=== PATIENT | female | born 1995 | race Caucasian/White ===

== ENCOUNTER → 2019-06-28 | Outpatient (CLI) | payer OTHER, MEDICAID ==
[2019-06-28 12:59] LABS: HEMATOCRIT 38 % (35-52); MEAN CORPUSCULAR HEMOGLOBIN 31 PG (25-34); MEAN CORPUSCULAR HGB CONC 34 G/DL (32-36); MEAN CORPUSCULAR VOLUME 90 FL (80-99); WHITE BLOOD COUNT 7.8 10^3/uL (4.3-11.0)
[2019-06-28 13:00] LABS: BASOPHILS % (AUTO) 0 % (0-10); EOSINOPHILS # (AUTO) 0.1 10^3/uL (0.0-0.3); EOSINOPHILS % (AUTO) 2 % (0-10); LYMPHOCYTES % (AUTO) 25 % (12-44); MEAN PLATELET VOLUME 9.4 FL (7.4-10.4); MONOCYTES # (AUTO) 0.5 X 10^3 (0.0-1.0); MONOCYTES % (AUTO) 7 % (0-12); NEUTROPHILS # (AUTO) 5.2 X 10^3 (1.8-7.8); NEUTROPHILS % (AUTO) 66 % (42-75); PLATELET COUNT 257 10^3/uL (130-400); RED CELL DISTRIBUTION WIDTH 12.3 % (10.0-14.5)
== END ==
LOC: LAB FS 11:53
PROVIDERS: ATTEND Family Medicine
DX: Z34.80 Encounter for supervision of other normal pregnancy, unspecified trimester (principal); Z3A.00 Weeks of gestation of pregnancy not specified
CPT/HCPCS: 36415; 85025; 86703; 86762; 86780; 86850; 86900; 86901; 87077; 87088; 87340

== ENCOUNTER → 2019-08-05 | Outpatient (CLI) | payer OTHER, MEDICAID | LOC: LABNPT 16:11 | PROVIDERS: ATTEND Family Medicine | DX: Z34.90 Encounter for supervision of normal pregnancy, unspecified, unspecified trimester (principal) | CPT/HCPCS: 87491; 87591 ==

== ENCOUNTER 2019-09-22 10:39 | Emergency (ER) | payer OTHER, MEDICAID ==
[~2019-09-22] VITALS: Ht 157 cm; Wt 60.0 kg
--- NOTE | 2019-09-22 10:53 | ED Cough/URI ---
General Stated Complaint: SOB Source: patient History of Present Illness Date Seen by Provider: Sep 22, 2019 Time Seen by Provider: 10:52 Initial Comments 24-year-old female presents with shortness of breath, tachycardia and orthostatic hypotension. Patient reports she has some shortness of breath that started yesterday. Patient presented to her primary care provider. Who sent her to the ER for further evaluation after her being orthostatic and tachycardic. Patient reports that her 3 kids were sick recently with an illness and fever. They have all tested negative for flu. She has recent fever. She denies any fevers at this time. Patient is approximately 20weeks 4 days with last menstrual period on . Patient reports good movement, no vaginal bleeding. Patient states that the shortness of breath sometimes get worse if she lays flat. Patient denies any leg swelling or calf pain Allergies and Home Medications Allergies Coded Allergies: No Known Drug Allergies (Unverified , 09/22/19) Patient Home Medication List Home Medication List Reviewed: Yes Review of Systems Review of Systems Constitutional: see HPI Respiratory: see HPI, short of breath Cardiovascular: see HPI Gastrointestinal: no symptoms reported Genitourinary: no symptoms reported : Yes LMP: May 01, 2019 Musculoskeletal: no symptoms reported Skin: no symptoms reported Psychiatric/Neurological: No Symptoms Reported Past Toztung-Sozzwk-Ppoans Hx Past Med/Social Hx: Reviewed Nursing Past Med/Soc Hx Patient Social History Recent Foreign Travel: Yes Physical Exam Vital Signs - First Documented 09/22/19 11:00 Temp 35.9 Pulse 101 Resp 20 B/P (MAP) 100/66 (77) Pulse Ox 99 O2 Delivery Room Air Capillary Refill : Height: '" Weight: lbs. oz. kg; BMI Method: General Appearance: other (patient's oxygen nation saturation is good however she does look as if she feels short of breath) HEENT: PERRL/EOMI Respiratory: lungs clear, normal breath sounds, no respiratory distress Cardiovascular: no edema, tachycardia Gastrointestinal: non tender, soft, other (gravid appearing) Neurologic/Psychiatric: development mechanic II-XII nml as tested, no motor/sensory deficits, alert, normal mood/affect, oriented x 3 Skin: normal color, warm/dry Lymphatic: no adenopathy Progress/Results/Core Measures Suspected Sepsis SIRS Temperature: Pulse: Respiratory Rate: Laboratory Tests 09/22/19 10:53: White Blood Count 8.4 Blood Pressure / Mean: Laboratory Tests 09/22/19 10:53: Creatinine 0.59L, Platelet Count 234, Total Bilirubin 0.4 Results/Orders Lab Results Laboratory Tests Test 09/22/19 10:53 09/22/19 11:33 Range/Units White Blood Count 8.4 4.3-11.0 10^3/uL Red Blood Count 3.84 L 4.35-5.85 10^6/uL Hemoglobin 12.0 11.5-16.0 G/DL Hematocrit 34 L 35-52 % Mean Corpuscular Volume 89 80-99 FL Mean Corpuscular Hemoglobin 31 25-34 PG Mean Corpuscular Hemoglobin Concent 35 32-36 G/DL Red Cell Distribution Width 13.0 10.0-14.5 % Platelet Count 234 130-400 10^3/uL Mean Platelet Volume 9.6 7.4-10.4 FL Neutrophils (%) (Auto) 76 H 42-75 % Lymphocytes (%) (Auto) 15 12-44 % Monocytes (%) (Auto) 7 0-12 % Eosinophils (%) (Auto) 2 0-10 % Basophils (%) (Auto) 0 0-10 % Neutrophils # (Auto) 6.4 1.8-7.8 X 10^3 Lymphocytes # (Auto) 1.2 1.0-4.0 X 10^3 Monocytes # (Auto) 0.5 0.0-1.0 X 10^3 Eosinophils # (Auto) 0.1 0.0-0.3 10^3/uL Basophils # (Auto) 0.0 0.0-0.1 10^3/uL D-Dimer 0.81 H 0.00-0.49 UG/ML Sodium Level 136 135-145 MMOL/L Potassium Level 3.3 L 3.6-5.0 MMOL/L Chloride Level 102 98-107 MMOL/L Carbon Dioxide Level 17 L 21-32 MMOL/L Anion Gap 17 H 5-14 MMOL/L Blood Urea Nitrogen 8 7-18 MG/DL Creatinine 0.59 L 0.60-1.30 MG/DL Estimat Glomerular Filtration Rate > 60 BUN/Creatinine Ratio 14 Glucose Level 102 70-105 MG/DL Calcium Level 9.3 8.5-10.1 MG/DL Corrected Calcium 9.6 8.5-10.1 MG/DL Total Bilirubin 0.4 0.1-1.0 MG/DL Aspartate Amino Transf (AST/SGOT) 19 5-34 U/L Alanine Aminotransferase (ALT/SGPT) 17 0-55 U/L Alkaline Phosphatase 104 40-136 U/L Troponin I < 0.30 <0.30 NG/ML C-Reactive Protein 2.11 H <0.50 MG/DL Total Protein 7.1 6.4-8.2 GM/DL Albumin 3.6 3.2-4.5 GM/DL Urine Color YELLOW Urine Clarity CLEAR Urine pH 7.5 5-9 Urine Specific [place] 1.015 L 1.016-1.022 Urine Protein NEGATIVE NEGATIVE Urine Glucose (UA) NEGATIVE NEGATIVE Urine Ketones NEGATIVE NEGATIVE Urine Nitrite NEGATIVE NEGATIVE Urine Bilirubin NEGATIVE NEGATIVE Urine Urobilinogen 0.2 < = 1.0 MG/DL Urine Leukocyte Esterase 2+ H NEGATIVE Urine RBC (Auto) NEGATIVE NEGATIVE Urine RBC NONE /HPF Urine WBC 5-10 H /HPF Urine Squamous Epithelial Cells 25-50 H /HPF Urine Crystals NONE /LPF Urine Bacteria FEW H /HPF Urine Casts NONE /LPF Urine Mucus NEGATIVE /LPF Urine Culture Indicated YES Micro Results Microbiology 09/22/19 Influenza Types A,B Antigen (AMINTA) - Final, Complete 09/22/19 Respiratory Syncytial Virus Ag - Final, Complete My Orders Orders - MALIA ADAMS DO Cbc With Automated Diff (09/22/19 10:53) Comprehensive Metabolic Panel (09/22/19 10:53) Fibrin Degradation Products (09/22/19 10:53) Ua Culture If Indicated (09/22/19 10:53) Influenza A And B Antigens (09/22/19 10:53) Rsv Antigen (09/22/19 10:53) Crp Fs (09/22/19 10:53) Chest Pa/Lat (2 View) (09/22/19 10:53) Ekg Tracing (09/22/19 11:23) Troponin I Fs (09/22/19 11:23) Ed Iv/Invasive Line Start (09/22/19 11:34) Ns Iv 500 Ml (Sodium Chloride 0.9%) (09/22/19 11:34) Urine Culture (09/22/19 11:33) Albuterol/Ipra Inhalation Soln (Duoneb I (09/22/19 12:12) Albuterol/Ipra Inhalation Soln (Duoneb I (09/22/19 12:30) Svn Small Volume Nebulizer (09/22/19 12:18) Ed Iv/Invasive Line Start (09/22/19 12:18) Ns Iv 1000 Ml (Sodium Chloride 0.9%) (09/22/19 12:18) Ns Iv 1000 Ml (Sodium Chloride 0.9%) (09/22/19 12:15) Ekg Tracing (09/22/19 13:04) Ct Angio Chest W (09/22/19 13:32) Iohexol Injection (Omnipaque 350 Mg/Ml 1 (09/22/19 14:00) Received Contrast (Hold Metformin- Contr (09/22/19 14:00) Sodium Chloride Flush (Catheter Flush Sy (09/22/19 14:00) Ns (Ivpb) (Sodium Chloride 0.9% Ivpb Bag (09/22/19 14:00) Medications Given in ED Current Medications Medications Dose Ordered Sig/Forest Route Start Time Stop Time Status Last Admin Dose Admin Albuterol/ Ipratropium 3 ml ONCE ONCE INH 09/22/19 12:30 09/22/19 12:31 DC 09/22/19 12:23 3 ML Iohexol 100 ml ONCE ONCE IV 09/22/19 14:00 09/22/19 14:01 DC 09/22/19 14:13 100 ML Sodium Chloride 10 ml NEEDED PRN IV 09/22/19 14:00 09/22/19 16:09 DC 09/22/19 14:14 10 ML Sodium Chloride 100 ml ONCE ONCE IV 09/22/19 14:00 09/22/19 14:01 DC 09/22/19 14:14 100 ML Vital Signs/I&O 09/22/19 09/22/19 09/22/19 11:00 13:52 15:43 Temp 35.9 36.9 Pulse 101 127 128 138 136 Resp 20 20 B/P (MAP) 100/66 (77) 96/57 (70) 105/61 108/68 (81) 98/60 (73) Pulse Ox 99 99 O2 Delivery Room Air Room Air Capillary Refill : Progress Note : Time: 15:26 Progress Note Patient with negative EKG 2 with sinus tachycardia, no orthostatic vital signs, normal oxygen at 100%, negative x-ray, negative CTA. Patient remained tachycardic throughout her stay but otherwise no acute findings. Discussed with Dr. Miller, we both agree the patient is safe for discharge home with further outpatient evaluation with possible outpatient echo. Patient's 3 kids all with a viral illness and suspect that this is the underlying cause of patient's tachycardia. Patient is stable and will be discharged home. She should follow-up with Dr. Miller in a couple days. Diagnostic Imaging Comments NAME: CAMI NICHOLSON [facility] REC#: [id number] PT STATUS: REG ER : 1995 PHYSICIAN: MALIA ADAMS DO ADMIT DATE: 09/22/19/ER FS Draft Date of Exam:09/22/19 CHEST PA/LAT (2 VIEW) PATIENT HISTORY: Shortness of breath. TECHNIQUE: Two views of the chest. COMPARISON: None. FINDINGS: The lung volumes are normal. No focal consolidation is seen. No large pleural effusion or pneumothorax is seen. The cardiomediastinal silhouette is normal in size and contour. No acute osseous abnormality is seen. IMPRESSION: No acute pulmonary abnormality seen. NAME: CAMI NICHOLSON [facility] REC#: [id number] PT STATUS: REG ER : 1995 PHYSICIAN: MALIA ADAMS DO ADMIT DATE: 09/22/19/ER FS Draft Date of Exam:09/22/19 CT ANGIO CHEST W PROCEDURE: CT angiography of the chest with contrast. TECHNIQUE: Multiple contiguous axial images were obtained through the chest after uneventful bolus administration of intravenous contrast. 3D reconstructed CTA MIP acquisitions were also performed. Auto Exposure Controls were utilized during the CT exam to meet ALARA standards for radiation dose reduction. INDICATION: Intermittent shortness of breath for the last 3 days. Patient also has elevated D-dimer. Patient is 20 weeks . No prior studies are available for comparison. Evaluation of the pulmonary arterial system is without thrombus or embolism. No definite filling defects are seen within central, lobar or segmental branches. The thoracic aorta is normal caliber. No dissection is seen. No pericardial or pleural fluid is identified. No pulmonary infiltrates, nodules or masses are seen. The upper abdomen is unremarkable. IMPRESSION: Unremarkable CT angiogram of the chest. There is no evidence of pulmonary embolism or thoracic aortic dissection. Departure Impression Primary Impression: Viral syndrome Additional Impressions: Tachycardia, unspecified 20 weeks gestation of Disposition: 01 HOME, SELF-CARE Condition: Stable Departure-Patient Inst. Referrals: SANJAY MILLER MD (PCP/Family) Primary Care Physician Patient Instructions: How to Adapt to Physical Changes During , Tachycardia (DC), Viral Upper Respiratory Infection, Adult (DC) Add. Discharge Instructions: Follow-up with Dr. Miller by phone in 3-4 days for continuation of care, recheck in today symptoms Please use self quarantined for 14 days due to recurrent rotavirus recommendations Return to the ER as needed Emergency department focuses on treating and ruling out life-threatening diseases. Whenever possible, a diagnosis is given. However, most patients are given an impression based on their history, physical exam, and workup during your brief time in the ER. Information about probable diagnosis and other educational material has been provided. Please take the time to read and understand this information. It is very important that you follow up with a physician as discussed during the visit today. Failure to adhere to your follow-up instructions may lead to severe disability, injury, or so please make sure to keep your appointments or obtain one as requested. Please keep in mind the emergency department is not designed to your primary care or "family doctor" and nonurgent issues are best evaluated by an outpatient physician MALIA ADAMS DO Sep 22, 2019 10:53
[2019-09-22 11:22] LABS: MEAN CORPUSCULAR HEMOGLOBIN 31 PG (25-34); WHITE BLOOD COUNT 8.4 10^3/uL (4.3-11.0)
--- NOTE | 2019-09-22 11:22 | Diagnostic Imaging Report ---
PATIENT HISTORY: Shortness of breath. TECHNIQUE: Two views of the chest. COMPARISON: None. FINDINGS: The lung volumes are normal. No focal consolidation is seen. No large pleural effusion or pneumothorax is seen. The cardiomediastinal silhouette is normal in size and contour. No acute osseous abnormality is seen. IMPRESSION: No acute pulmonary abnormality seen. Dictated by: Dictated on workstation # [id number]
[2019-09-22 11:23] LABS: BASOPHILS % (AUTO) 0 % (0-10); EOSINOPHILS # (AUTO) 0.1 10^3/uL (0.0-0.3); EOSINOPHILS % (AUTO) 2 % (0-10); HEMATOCRIT 34 % (35-52); LYMPHOCYTES # (AUTO) 1.2 X 10^3 (1.0-4.0); LYMPHOCYTES % (AUTO) 15 % (12-44); MEAN CORPUSCULAR HGB CONC 35 G/DL (32-36); MEAN CORPUSCULAR VOLUME 89 FL (80-99); MEAN PLATELET VOLUME 9.6 FL (7.4-10.4); MONOCYTES # (AUTO) 0.5 X 10^3 (0.0-1.0); MONOCYTES % (AUTO) 7 % (0-12); NEUTROPHILS # (AUTO) 6.4 X 10^3 (1.8-7.8); NEUTROPHILS % (AUTO) 76 % (42-75); PLATELET COUNT 234 10^3/uL (130-400)
[2019-09-22] MEDS ORDERED: NS IV 500 ML 500 ML IV ONE (11:34)
[2019-09-22 11:43] LABS: ALKALINE PHOSPHATASE 104 U/L (40-136); BILIRUBIN,TOTAL 0.4 MG/DL (0.1-1.0); BUN/CREATININE RATIO 14; CALCIUM 9.3 MG/DL (8.5-10.1); CARBON DIOXIDE 17 MMOL/L (21-32); CHLORIDE 102 MMOL/L (98-107); CREATININE SERUM 0.59 MG/DL (0.60-1.30); GFR ESTIMATED > 60; GLUCOSE 102 MG/DL (70-105); POTASSIUM 3.3 MMOL/L (3.6-5.0); SODIUM 136 MMOL/L (135-145)
[2019-09-22 11:44] LABS: ALANINE AMINOTRANSFERASE 17 U/L (0-55); ALBUMIN 3.6 GM/DL (3.2-4.5); TOTAL PROTEIN 7.1 GM/DL (6.4-8.2)
[2019-09-22 11:50] LABS: CLARITY,URINE CLEAR; COLOR,URINE YELLOW
[2019-09-22 11:51] LABS: BACTERIA,URINE FEW /HPF; BILIRUBIN,URINE NEGATIVE (NEGATIVE); GLUCOSE, URINE (UA) NEGATIVE (NEGATIVE); KETONES,URINE NEGATIVE (NEGATIVE); LEUKOCYTE ESTERASE ,URINE 2+ (NEGATIVE); NITRITE,URINE NEGATIVE (NEGATIVE); PH,URINE 7.5 (5-9); PROTEIN,URINE NEGATIVE (NEGATIVE); SQUAMOUS EPITHELIAL CELL,UR 25-50 /HPF
[2019-09-22] MEDS ORDERED: RT-ALBUTEROL/IPRATROPIUM 3 ML (DUONEB) VIAL ONE (12:12)
[2019-09-22] MEDS ORDERED: NS IV 1000 ML 1,000 ML ONE (12:15)
[2019-09-22] MEDS ORDERED: NS IV 1000 ML 1,000 ML IV SCH (12:18)
[2019-09-22] MEDS ORDERED: RT-ALBUTEROL/IPRATROPIUM 3 ML (DUONEB) VIAL INH ONE (12:30)
--- OUTSIDE RECORDS SUMMARY | 2019-09-22 12:40 | XMS REPORT | Continuity of Care Document ---
Author Organization Unknown Address Unknown Phone Unavailable Allergies There is no data. Medications There is no data. Problems Date Dx Coded Attending Type Code Diagnosis Diagnosed By 07/02/2019 SANJAY MILLER MD Ot Z34.80 ENCOUNTER FOR SUPRVSN OF NORMAL PREGNANC 07/02/2019 SANJAY MILLER MD Ot Z3A.00 WEEKS OF GESTATION OF NOT SPEC 07/02/2019 SANJAY MILLER MD Ot Z34.80 ENCOUNTER FOR SUPRVSN OF NORMAL PREGNANC 07/02/2019 SANJAY MILLER MD Ot Z3A.00 WEEKS OF GESTATION OF NOT SPEC 07/04/2019 SANJAY MILLER MD Ot Z34.80 ENCOUNTER FOR SUPRVSN OF NORMAL PREGNANC 07/04/2019 SANJAY MILLER MD Ot Z3A.00 WEEKS OF GESTATION OF NOT SPEC 07/13/2019 SANJAY MILLER MD Ot Z34.80 ENCOUNTER FOR SUPRVSN OF NORMAL PREGNANC 07/13/2019 SANJAY MILLER MD Ot Z3A.00 WEEKS OF GESTATION OF NOT SPEC 08/07/2019 SANJAY MILLER MD Ot Z34.90 ENCNTR FOR SUPRVSN OF NORMAL , 08/10/2019 SANJAY MILLER MD Ot Z34.90 ENCNTR FOR SUPRVSN OF NORMAL , 08/23/2019 SANJAY MILLER MD Ot Z34.90 ENCNTR FOR SUPRVSN OF NORMAL , 08/27/2019 SANJAY MILLER MD Ot Z34.90 ENCNTR FOR SUPRVSN OF NORMAL , Procedures There is no data. Results Test Result Range ELIZ ANALYZER - 11/26/18 10:20 ELIZ SCREEN, IFA NEGATIVE NEGATIVE HCG, QUANTITATIVE - 04/21/19 13:15 HCG, TOTAL, QN <2 mIU/mL NRG CULTURE, URINE - 06/24/19 10:07 CULTURE, URINE, ROUTINE NRG CULTURE, THROAT - 06/24/19 10:07 CULTURE, THROAT SEE NOTE NRG Complete blood count (CBC) with automate d white blood cell (WBC) differential - 06/28/19 12:17 Blood leukocytes automated count (number/volume) 7.8 10*3/uL 4.3-11.0 Blood erythrocytes automated count (number/volume) 4.25 10*6/uL 4.35-5.85 Venous blood hemoglobin measurement (mass/volume) 13.0 g/dL 11.5-16.0 Blood hematocrit (volume fraction) 38 % 35-52 Automated erythrocyte mean corpuscular volume 90 [ foz_us] 80-99 Automated erythrocyte mean corpuscular h emoglobin (mass per erythrocyte) 31 pg 25-34 Automated erythrocyte mean corpuscular h emoglobin concentration measurement (mass/volume) 34 g/dL 32-36 Automated erythrocyte distribution width ratio 12. 3 % 10.0- 14.5 Automated blood platelet count (count/volume) 257 10*3/uL 130-400 Automated blood platelet mean volume measurement 9.4 [foz_us] 7.4-10.4 Automated blood neutrophils/100 leukocytes 66 % 42-75 Automated blood lymphocytes/100 leukocytes 25 % 12-44 Blood monocytes/100 leukocytes 7 % 0-12 Automated blood eosinophils/100 leukocytes 2 % 0-10 Automated blood basophils/100 leukocytes 0 % 0-10 Blood neutrophils automated count (number/volume) 5.2 10*3 1.8-7.8 Blood lymphocytes automated count (number/volume) 2.0 10*3 1.0-4.0 Blood monocytes automated count (number/volume) 0. 5 10*3 0.0-1.0 Automated eosinophil count 0.1 10*3/uL 0 .0-0.3 Automated blood basophil count (count/volume) 0.0 10*3/uL 0.0-0.1 ABO+Rh group - 06/28/19 12:17 ABO+Rh group BP NRG Blood group antibody screen - 06/28/19 1 2:17 Blood group antibody screen NEGATIVE NR G Human immunodeficiency virus (HIV) type 1 and 2 antibody detection - 06/28/19 12:17 Serum HIV 1+2 antibody detection by immunoblot Non-Reactive Non-Reactive Body fluid hepatitis B virus surface ant igen detection - 06/28/19 12:17 Confirmatory quantitative serum or plasm a hepatitis B virus surface antigen measurement Non-Reactive Non-Reactive RUBELLA ANTIBODY IGG - 06/28/19 12:17 Interpretation of serum rubella virus IgG antibody jyoti t Positive Negative RUBELLA IGG AB 1.83 % 0.00-0.89 Serum reagin antibody assay (units/volum e) by RPR - 06/28/19 12:17 Serum reagin antibody assay (units/volume) by RPR Non-Reactive Non-Reactive Bacterial urine culture - 06/28/19 12:17 Bacterial urine culture [id number] NRG COLONY COUNT <10,000 NRG FTX;REPORTABLE NO SUSCEPTIBILITY PERFORMED NRG Chlamydia trachomatis DNA detection by p robe and signal amplification method - 08/05/19 16:16 Chlamydia trachomatis DNA detection by p robe and target amplification method Not Detected Not Detected Neisseria gonorrhoeae DNA detection by p robe and signal amplification method - 08/05/19 16:16 Gonorrhea amp DNA-urine Not Detected No t Detected Encounters ACCT No. Visit Date/Time Discharge Status Pt. Type Provider Facility Loc./Unit Complaint [id number] 06/28/2019 11:20:00 06/28/2019 23:59: 59 CLS Outpatient [facility] [id number] 06/24/2019 10:00:00 Document Registration [id number] 04/21/2019 13:20:00 Document Registration [id number] 11/26/2018 09:45:00 Document Registration [id number] 06/08/2019 13:40:00 06/08/2019 23:59:5 9 CLS Outpatient SANJAY MILLER [facility] [id number] 08/05/2019 16:11:00 020 23:59:59 CLS Outpatient SANJAY MILLER MD [facility] LABNPT [id number] 06/28/2019 11:53:00 019 23:59:59 CLS Outpatient SANJAY MILLER MD [facility] LAB FS HIV CBC BLOOD TYPE/RH A NTIBODY SCRN SYPHILIS HEPB+
[2019-09-22 13:52] VITALS: BP_SYST 108; BP_SYST 96; BP_SYST 98; BP_DIAS 57; BP_DIAS 60; BP_DIAS 68
[2019-09-22] MEDS ORDERED: CATHETER FLUSH 10 ML SYR IV PRN (14:00)
[2019-09-22] MEDS ORDERED: IOHEXOL 350 MG/ML 100 ML (OMNIPAQUE 350) VIAL IV ONE (14:00)
[2019-09-22] MEDS ORDERED: HOLD METFORMIN - RECEIVED CONTRAST 20 ML VIAL IV SCH (14:00)
[2019-09-22] MEDS ORDERED: NS 100 ML (IVPB) BAG IV ONE (14:00)
--- NOTE | 2019-09-22 14:29 | Diagnostic Imaging Report ---
PROCEDURE: CT angiography of the chest with contrast. TECHNIQUE: Multiple contiguous axial images were obtained through the chest after uneventful bolus administration of intravenous contrast. 3D reconstructed CTA MIP acquisitions were also performed. Auto Exposure Controls were utilized during the CT exam to meet ALARA standards for radiation dose reduction. INDICATION: Intermittent shortness of breath for the last 3 days. Patient also has elevated D-dimer. Patient is 20 weeks . No prior studies are available for comparison. Evaluation of the pulmonary arterial system is without thrombus or embolism. No definite filling defects are seen within central, lobar or segmental branches. The thoracic aorta is normal caliber. No dissection is seen. No pericardial or pleural fluid is identified. No pulmonary infiltrates, nodules or masses are seen. The upper abdomen is unremarkable. IMPRESSION: Unremarkable CT angiogram of the chest. There is no evidence of pulmonary embolism or thoracic aortic dissection. Dictated by: Dictated on workstation # [id number]
[2019-09-22 15:43] VITALS: BP 105/61
== END 2019-09-22 15:36 | disposition home or self-care (01) ==
LOC: EDUNIT# 10:39 → ER FS 10:44
DX: O98.512 Other viral diseases complicating pregnancy, second trimester (principal); B34.9 Viral infection, unspecified; O26.892 Other specified pregnancy related conditions, second trimester; R00.0 Tachycardia, unspecified; Z3A.20 20 weeks gestation of pregnancy
CPT/HCPCS: 36415; 71046; 71275; 80053; 81000; 84484; 85025; 85379; 86141; 87088; 87420; 87804; 93005

== ENCOUNTER → 2019-09-24 | Outpatient (CLI) | payer OTHER, MEDICAID ==
--- NOTE | 2019-09-24 13:31 | Diagnostic Imaging Report ---
EXAMINATION: CHEST (PA AND LATERAL) CLINICAL INDICATION: 24-year-old female, shortness of breath. COMPARISON: September 22, 2019. FINDINGS: Heart size and mediastinal contours are unremarkable. There is no identified pneumothorax. There is no pleural effusion. There is no identified focal airspace consolidation. IMPRESSION: No identified acute cardiopulmonary abnormality. Dictated by: Dictated on workstation # [id number]
== END ==
LOC: RAD FS 13:01
PROVIDERS: ATTEND Family Medicine
DX: R06.02 Shortness of breath (principal)
CPT/HCPCS: 71046

== ENCOUNTER → 2019-09-24 | Outpatient (CLI) | payer OTHER, MEDICAID ==
[2019-09-24 13:34] LABS: HEMATOCRIT 34 % (35-52); HEMOGLOBIN 11.5 G/DL (11.5-16.0); MEAN CORPUSCULAR HEMOGLOBIN 31 PG (25-34); MEAN CORPUSCULAR HGB CONC 34 G/DL (32-36); MEAN CORPUSCULAR VOLUME 91 FL (80-99); MEAN PLATELET VOLUME 9.1 FL (7.4-10.4); NEUTROPHILS % (AUTO) 76 % (42-75); PLATELET COUNT 253 10^3/uL (130-400); RED CELL DISTRIBUTION WIDTH 13.6 % (10.0-14.5); WHITE BLOOD COUNT 8.4 10^3/uL (4.3-11.0)
[2019-09-24 13:35] LABS: BASOPHILS % (AUTO) 0 % (0-10); EOSINOPHILS # (AUTO) 0.1 10^3/uL (0.0-0.3); EOSINOPHILS % (AUTO) 2 % (0-10); LYMPHOCYTES # (AUTO) 1.3 X 10^3 (1.0-4.0); LYMPHOCYTES % (AUTO) 16 % (12-44); MONOCYTES # (AUTO) 0.5 X 10^3 (0.0-1.0); MONOCYTES % (AUTO) 6 % (0-12); NEUTROPHILS # (AUTO) 6.3 X 10^3 (1.8-7.8)
[2019-09-24 13:37] LABS: BACTERIA,URINE TRACE /HPF; BILIRUBIN,URINE NEGATIVE (NEGATIVE); CLARITY,URINE CLEAR; COLOR,URINE YELLOW; GLUCOSE, URINE (UA) NEGATIVE (NEGATIVE); KETONES,URINE NEGATIVE (NEGATIVE); LEUKOCYTE ESTERASE ,URINE TRACE (NEGATIVE); NITRITE,URINE NEGATIVE (NEGATIVE); PH,URINE 5.5 (5-9); PROTEIN,URINE NEGATIVE (NEGATIVE); WBC,URINE 0-2 /HPF
[2019-09-24 13:51] LABS: ALANINE AMINOTRANSFERASE 13 U/L (0-55); ALBUMIN 3.8 GM/DL (3.2-4.5); ALKALINE PHOSPHATASE 98 U/L (40-136); BILIRUBIN,TOTAL 0.2 MG/DL (0.1-1.0); BUN/CREATININE RATIO 13; CALCIUM 9.2 MG/DL (8.5-10.1); CARBON DIOXIDE 21 MMOL/L (21-32); CHLORIDE 102 MMOL/L (98-107); CREATININE SERUM 0.68 MG/DL (0.60-1.30); GFR ESTIMATED > 60; GLUCOSE 79 MG/DL (70-105); POTASSIUM 3.8 MMOL/L (3.6-5.0); SODIUM 138 MMOL/L (135-145); TOTAL PROTEIN 7.4 GM/DL (6.4-8.2)
== END ==
LOC: LAB FS 12:58
PROVIDERS: ATTEND Family Medicine
DX: R50.9 Fever, unspecified (principal); R06.02 Shortness of breath
CPT/HCPCS: 36415; 80053; 81000; 85025

== ENCOUNTER → 2019-09-27 | Outpatient (CLI) | payer OTHER, MEDICAID | LOC: CARD 10:41 | PROVIDERS: ATTEND Family Medicine | DX: R00.0 Tachycardia, unspecified (principal); R06.02 Shortness of breath; I95.1 Orthostatic hypotension | CPT/HCPCS: 93306 ==

== ENCOUNTER → 2019-11-10 | Outpatient (CLI) | payer OTHER, MEDICAID ==
[2019-11-10 13:50] LABS: HEMATOCRIT 32 % (35-52); HEMOGLOBIN 10.7 G/DL (11.5-16.0); MEAN CORPUSCULAR HEMOGLOBIN 30 PG (25-34); MEAN CORPUSCULAR VOLUME 90 FL (80-99); WHITE BLOOD COUNT 10.2 10^3/uL (4.3-11.0)
[2019-11-10 13:51] LABS: BASOPHILS % (AUTO) 0 % (0-10); EOSINOPHILS # (AUTO) 0.1 10^3/uL (0.0-0.3); EOSINOPHILS % (AUTO) 1 % (0-10); LYMPHOCYTES # (AUTO) 1.8 X 10^3 (1.0-4.0); LYMPHOCYTES % (AUTO) 17 % (12-44); MEAN CORPUSCULAR HGB CONC 34 G/DL (32-36); MEAN PLATELET VOLUME 9.1 FL (7.4-10.4); MONOCYTES # (AUTO) 0.7 X 10^3 (0.0-1.0); MONOCYTES % (AUTO) 7 % (0-12); NEUTROPHILS # (AUTO) 7.7 X 10^3 (1.8-7.8); NEUTROPHILS % (AUTO) 75 % (42-75); PLATELET COUNT 224 10^3/uL (130-400)
== END ==
LOC: LAB FS 13:08
PROVIDERS: ATTEND Family Medicine
DX: Z34.80 Encounter for supervision of other normal pregnancy, unspecified trimester (principal)
CPT/HCPCS: 36415; 82950; 85025; 86780

== ENCOUNTER → 2019-11-12 | Outpatient (CLI) | payer OTHER, MEDICAID | LOC: LAB FS 09:06 | PROVIDERS: ATTEND Family Medicine | DX: O99.810 Abnormal glucose complicating pregnancy (principal); Z3A.00 Weeks of gestation of pregnancy not specified | CPT/HCPCS: 36415; 82951; 82952 ==

== ENCOUNTER 2020-01-04 21:47 | Outpatient (CLI) | payer OTHER, MEDICAID ==
[~2020-01-04] VITALS: Ht 157 cm; Wt 68.0 kg
--- NOTE | 2020-01-04 21:54 | NUR ---
CAMI NICHOLSON presented to unit via ambulatory from ED, accompanied by s/o, with c/o CONTRACTIONS 35 09/10. CAMI NICHOLSON weighed, gowned, voided, and to bed. EFHM and TOCO applied, VS taken. CAMI NICHOLSON oriented to bed controls, call light, TV, heat, and A/C controls.
[2020-01-04 22:00] VITALS: BP 106/60
[2020-01-04 22:16] LABS: BILIRUBIN,URINE NEGATIVE (NEGATIVE); CLARITY,URINE CLEAR; COLOR,URINE YELLOW; GLUCOSE, URINE (UA) NEGATIVE (NEGATIVE); KETONES,URINE NEGATIVE (NEGATIVE); LEUKOCYTE ESTERASE ,URINE TRACE (NEGATIVE); NITRITE,URINE NEGATIVE (NEGATIVE); PROTEIN,URINE NEGATIVE (NEGATIVE)
[2020-01-04 22:20] VITALS: BP 106/60
[2020-01-04 22:23] LABS: BACTERIA,URINE TRACE /HPF; RBC,URINE RARE /HPF; WBC,URINE 0-2 /HPF
--- NOTE | 2020-01-04 22:26 | NUR ---
Dr. Pfeiffer notified of patient arrival and assessment. Dr. Pfeiffer voiced that she thought Dr. Montero would like to manage her own OB patient.
--- NOTE | 2020-01-04 22:34 | NUR ---
Dr. Montero notified of patient arrival and assessment. She plans to manage care. orders received.
[2020-01-04] MEDS ORDERED: TERBUTALINE INJ 1 MG/ML (BRETHINE) AMP SC ONE (22:45)
--- NOTE | 2020-01-04 22:47 | NUR ---
Dr. Montero notified that patient refused terbutaline to stop labor despite education provided by this RN. Patient would accept the ordered IV fluids for hydration.
--- NOTE | 2020-01-04 22:50 | NUR ---
After obtaining supplies to start IV fluids this RN walks into the patients room to find she had unhooked herself from the external monitors and was getting dressed to leave. This RN voiced multiple concerns for her and babys safety but the patient was still persistent to leave AMA. Patient did agree to let this RN perform SVE, no cervical change noted from initial check the hour before.
[2020-01-04] MEDS ORDERED: NS IV 1000 ML 1,000 ML IV SCH (23:00)
--- NOTE | 2020-01-04 23:03 | NUR ---
Again despite efforts to encourage the patient stay and be monitored she signed AMA papers and ambulated off unit.
--- NOTE | 2020-01-04 23:05 | NUR ---
Dr. Montero notified that patient continued to refuse treatment and left AMA.
--- OUTSIDE RECORDS SUMMARY | 2020-01-04 23:38 | XMS REPORT | Continuity of Care Document ---
Author Organization Unknown Address Unknown Phone Unavailable Allergies Active Description Code Type Severity Reaction Onset Reported/Identified Relationship to Patient Clinical Status Yes No Known Drug Allergies [id number] Drug Allergy Unknown N/A 09/22/2019 Medications There is no data. Problems Date [...] Z34.90 ENCNTR FOR SUPRVSN OF NORMAL , 09/22/2019 ADAMS DO, MALIA L Ot B34.9 VIRAL INFECTION, UNSPECIFIED 09/22/2019 ADAMS DO, MALIA L Ot O26.8 92 OTH RELATED CONDITIONS, SECOND 09/22/2019 ADAMS DO, MALIA L Ot O98.5 12 OTH VIRAL DISEASES COMPLICATING PREGNANC 09/22/2019 ADAMS DO, MALIA L Ot R00.0 TACHYCARDIA, UNSPECIFIED 09/22/2019 ADAMS DO, MALIA L Ot R06.0 2 SHORTNESS OF BREATH 09/22/2019 ADAMS DO, MALIA L Ot Z3A.2 0 20 WEEKS GESTATION OF 09/22/2019 SANJAY MILLER MD Ot Z34.80 ENCOUNTER FOR SUPRVSN OF NORMAL PREGNANC 09/22/2019 SANJAY MILLER MD Ot Z3A.00 WEEKS OF GESTATION OF NOT SPEC 09/22/2019 SANJAY MILLER MD Ot Z34.90 ENCNTR FOR SUPRVSN OF NORMAL , 09/23/2019 SANJAY MILLER MD Ot Z34.80 ENCOUNTER FOR SUPRVSN OF NORMAL PREGNANC 09/23/2019 SANJAY MILLER MD Ot Z3A.00 WEEKS OF GESTATION OF NOT SPEC 09/23/2019 SANJAY MILLER MD Ot Z34.90 ENCNTR FOR SUPRVSN OF NORMAL , 09/24/2019 ADAMS DO, MALIA L Ot B34.9 VIRAL INFECTION, UNSPECIFIED 09/24/2019 ADAMS DO, MALIA L Ot O26.8 92 OTH RELATED CONDITIONS, SECOND 09/24/2019 ADAMS DO, MALIA L Ot O98.5 12 OTH VIRAL DISEASES COMPLICATING PREGNANC 09/24/2019 ADAMS DO, MALIA L Ot R00.0 TACHYCARDIA, UNSPECIFIED 09/24/2019 ADAMS DO, MALIA L Ot R06.0 2 SHORTNESS OF BREATH 09/24/2019 ADAMS DO, MALIA L Ot Z3A.2 0 20 WEEKS GESTATION OF 09/24/2019 SANJAY MILLER MD Ot Z34.80 ENCOUNTER FOR SUPRVSN OF NORMAL PREGNANC 09/24/2019 SANJAY MILLER MD Ot Z3A.00 WEEKS OF GESTATION OF NOT SPEC 09/24/2019 SANJAY MILLER MD Ot Z34.90 ENCNTR FOR SUPRVSN OF NORMAL , 09/24/2019 SANJAY MILLER MD Ot Z34.80 ENCOUNTER FOR SUPRVSN OF NORMAL PREGNANC 09/24/2019 SANJAY MILLER MD Ot Z3A.00 WEEKS OF GESTATION OF NOT SPEC 09/24/2019 SANJAY MILLER MD Ot Z34.90 ENCNTR FOR SUPRVSN OF NORMAL , 09/27/2019 SANJAY MILLER MD Ot Z34.80 ENCOUNTER FOR SUPRVSN OF NORMAL PREGNANC 09/27/2019 SANJAY MILLER MD Ot Z3A.00 WEEKS OF GESTATION OF NOT SPEC 09/27/2019 SANJAY MILLER MD Ot Z34.90 ENCNTR FOR SUPRVSN OF NORMAL , 09/29/2019 SANJAY MILLER MD Ot Z34.80 ENCOUNTER FOR SUPRVSN OF NORMAL PREGNANC 09/29/2019 SANJAY MILLER MD Ot Z3A.00 WEEKS OF GESTATION OF NOT SPEC 09/29/2019 SANJAY MILLER MD Ot Z34.90 ENCNTR FOR SUPRVSN OF NORMAL , 09/29/2019 SANJAY MILLER MD Ot Z34.80 ENCOUNTER FOR SUPRVSN OF NORMAL PREGNANC 09/29/2019 SANJAY MILLER MD Ot Z3A.00 WEEKS OF GESTATION OF NOT SPEC 09/29/2019 SANJAY MILLER MD Ot Z34.90 ENCNTR FOR SUPRVSN OF NORMAL , 09/29/2019 SANJAY MILLER MD Ot Z34.80 ENCOUNTER FOR SUPRVSN OF NORMAL PREGNANC 09/29/2019 SANJAY MILLER MD Ot Z3A.00 WEEKS OF GESTATION OF NOT SPEC 09/29/2019 SANJAY MILLER MD Ot Z34.90 ENCNTR FOR SUPRVSN OF NORMAL , 09/29/2019 SANJAY MILLER MD Ot R06.02 SHORTNESS OF BREATH 09/29/2019 SANJAY MILLER MD Ot R50 .9 FEVER, UNSPECIFIED 09/29/2019 SANJAY MILLER MD Ot R06.02 SHORTNESS OF BREATH 09/29/2019 SANJAY MILLER MD Ot I95 .1 ORTHOSTATIC HYPOTENSION 09/29/2019 SANJAY MILLER MD Ot R00 .0 TACHYCARDIA, UNSPECIFIED 09/29/2019 SANJAY MILLER MD M Ot R06.02 SHORTNESS OF BREATH 09/29/2019 ANGELA SLOAN, SANJAY Pedersen Ot I95 .1 ORTHOSTATIC HYPOTENSION 09/29/2019 ANGELA SLOAN, SANJAY Pedersen Ot R00 .0 TACHYCARDIA, UNSPECIFIED 09/29/2019 ANGELA SLOAN, SANJAY Pedersen Ot R06.02 SHORTNESS OF BREATH 10/01/2019 ANGELA SLOAN, SANJAY Pedersen Ot R06.02 SHORTNESS OF BREATH 10/05/2019 ANGELA SLOAN, SANJAY Pedersen Ot R06.02 SHORTNESS OF BREATH 10/05/2019 ANGELA SLOAN, SANJAY Pedersen Ot R50 .9 FEVER, UNSPECIFIED 10/05/2019 ANGELA SLOAN, SANJAY Pedersen Ot R06.02 SHORTNESS OF BREATH 10/13/2019 ANGELA SLOAN, SANJAY Pedersen Ot I95 .1 ORTHOSTATIC HYPOTENSION 10/13/2019 ANGELA SLOAN SANJAY Pedersen Ot R00 .0 TACHYCARDIA, UNSPECIFIED 10/13/2019 ANGELA SLOAN SANJAY Pedersen Ot R06.02 SHORTNESS OF BREATH 11/11/2019 ANGELA SLOAN, SANJAY Pedersen Ot Z34.80 ENCOUNTER FOR SUPRVSN OF NORMAL PREGNANC 11/23/2019 ANGELA SLOAN SANJAY Nuvia Ot Z34.80 ENCOUNTER FOR SUPRVSN OF NORMAL PREGNANC 11/25/2019 ANGELA SLOAN SANJAY Pedersen Ot O99.810 ABNORMAL GLUCOSE COMPLICATING 11/25/2019 ANGELA SLOAN SANJAY Pedersen Ot Z3A.00 WEEKS OF GESTATION OF NOT SPEC Procedures There is no data. Results Test [...] culture - 06/28/19 12:17 Bacterial urine culture [id number] NRG COLONY COUNT <10,000 NRG FTX;REPORTABLE NO SUSCEPTIBILITY PERFORMED NRG Chlamydia trachomatis DNA detection by p robe and signal amplification method - 08/05/19 16:16 Chlamydia trachomatis DNA detection by p robe and target amplification method Not Detected Not Detected Neisseria gonorrhoeae DNA detection by p robe and signal amplification method - 08/05/19 16:16 Gonorrhea amp DNA-urine Not Detected No t Detected Influenza virus A and B antigen detectio n - 09/22/19 10:50 FLU RESULT NEGATIVE FOR INFLUENZA A AND B ANTIGENS BY IA NRG Respiratory syncytial virus antigen dete ction - 09/22/19 10:50 RSVRESULT NEGATIVE BY IMMUNOASSAY NR Complete blood count (CBC) with automate d white blood cell (WBC) differential - 09/22/19 10:53 Blood leukocytes automated count (number/volume) 8.4 10*3/uL 4.3-11.0 Blood erythrocytes automated count (number/volume) 3.84 10*6/uL 4.35-5.85 Venous blood hemoglobin measurement (mass/volume) 12.0 g/dL 11.5-16.0 Blood hematocrit (volume fraction) 34 % 35-52 Automated erythrocyte mean corpuscular volume 89 [ foz_us] 80-99 Automated erythrocyte mean corpuscular h emoglobin (mass per erythrocyte) 31 pg 25-34 Automated erythrocyte mean corpuscular h emoglobin concentration measurement (mass/volume) 35 g/dL 32-36 Automated erythrocyte distribution width ratio 13. 0 % 10.0- 14.5 Automated blood platelet count (count/volume) 234 10*3/uL 130-400 Automated blood platelet mean volume measurement 9.6 [foz_us] 7.4-10.4 Automated blood neutrophils/100 leukocytes 76 % 42-75 Automated blood lymphocytes/100 leukocytes 15 % 12-44 Blood monocytes/100 leukocytes 7 % 0-12 Automated blood eosinophils/100 leukocytes 2 % 0-10 Automated blood basophils/100 leukocytes 0 % 0-10 Blood neutrophils automated count (number/volume) 6.4 10*3 1.8-7.8 Blood lymphocytes automated count (number/volume) 1.2 10*3 1.0-4.0 Blood monocytes automated count (number/volume) 0. 5 10*3 0.0-1.0 Automated eosinophil count 0.1 10*3/uL 0 .0-0.3 Automated blood basophil count (count/volume) 0.0 10*3/uL 0.0-0.1 Comprehensive metabolic panel - 09/22/19 10:53 Serum or plasma sodium measurement (moles/volume) 136 mmol/L 135-145 Serum or plasma potassium measurement (moles/volume) 3.3 mmol/L 3.6-5.0 Serum or plasma chloride measurement (moles/volume) 102 mmol/L 98-107 Carbon dioxide 17 mmol/L 21-32 Serum or plasma anion gap determination (moles/volume) 17 mmol/L 5-14 Serum or plasma urea nitrogen measurement (mass/volume ) 8 mg/dL 7-18 Serum or plasma creatinine measurement (mass/volume) 0.59 mg/dL 0.60-1.30 Serum or plasma urea nitrogen/creatinine mass ratio 14 NRG Serum or plasma creatinine measurement w ith calculation of estimated glomerular filtration rate > NRG Serum or plasma glucose measurement (mass/volume) 102 mg/dL 70-105 Serum or plasma calcium measurement (mass/volume) 9.3 mg/dL 8.5-10.1 Serum or plasma total bilirubin measurement (mass/volu me) 0.4 mg/dL 0.1-1.0 Serum or plasma alkaline phosphatase chelsey surement (enzymatic activity/volume) 104 U/L 40-136 Serum or plasma aspartate aminotransfera se measurement (enzymatic activity/volume) 19 U/L 5-34 Serum or plasma alanine aminotransferase measurement (enzymatic activity/volume) 17 U/L 0-55 Serum or plasma protein measurement (mass/volume) 7.1 g/dL 6.4-8.2 Serum or plasma albumin measurement (mass/volume) 3.6 g/dL 3.2-4.5 CALCIUM CORRECTED 9.6 mg/dL 8.5-10.1 CRP FS - 09/22/19 10:53 CRP FS 2.11 mg/dL <0.50 TROPONIN I FS - 09/22/19 10:53 TROPONIN I FS < 0.30 <0.30 Fibrin D-dimer FEU measurement in platel et poor plasma (mass/volume) - 09/22/19 10:53 Fibrin D-dimer FEU measurement in platelet poor plasma (mass/volume) 0.81 ug/mL 0.00-0.49 Complete urinalysis with reflex to cultu re - 09/22/19 11:33 Urine color determination YELLOW NRG Urine clarity determination CLEAR NR G Urine pH measurement by test strip 7.5 5-9 Specific gravity of urine by test strip 1.015 1.016-1.022 Urine protein assay by test strip, semi-quantitative NEGATIVE NEGATIVE Urine glucose detection by automated test strip NE GATIVE NEGATIVE Erythrocytes detection in urine sediment by light micr oscopy NEGATIVE NEGATIVE Urine ketones detection by automated test strip NE GATIVE NEGATIVE Urine nitrite detection by test strip NEGATIVE NEGATIVE Urine total bilirubin detection by test strip NEGA TIVE NEGATIVE Urine urobilinogen measurement by automated test strip (mass/volume) 0.2 mg/dL < = 1.0 Urine leukocyte esterase detection by dipstick 2+ NEGATIVE Automated urine sediment erythrocyte cou nt by microscopy (number/high power field) NONE NRG Automated urine sediment leukocyte count by microscopy (number/high power field) [HPF] NRG Bacteria detection in urine sediment by light microsco py FEW NRG Squamous epithelial cells detection in u rine sediment by light microscopy 25-50 NRG Crystals detection in urine sediment by light microsco py NONE NRG Casts detection in urine sediment by light microscopy NONE NRG Mucus detection in urine sediment by light microscopy NEGATIVE NRG Complete urinalysis with reflex to culture YES NRG Bacterial urine culture - 09/22/19 11:33 Bacterial urine culture 3 OR MORE NRG COLONY COUNT 80,000 CFU/ML NRG SUSCEPTIBILITY GRAM POSITIVE ISOLATES; SUGGESTING NRG MRSA SCREEN PROBABLE COLLECTION CONTAMINATION WITH NRG RAPID ID SKIN JORGE. NO SUSCEPTIBILITY PERFORMED. NRG Complete urinalysis with reflex to cultu re - 01/04/20 22:10 Urine color determination YELLOW NRG Urine clarity determination CLEAR NR G Urine pH measurement by test strip 7.0 5-9 Specific gravity of urine by test strip 1.020 1.016-1.022 Urine protein assay by test strip, semi-quantitative NEGATIVE NEGATIVE Urine glucose detection by automated test strip NE GATIVE NEGATIVE Erythrocytes detection in urine sediment by light micr oscopy NEGATIVE NEGATIVE Urine ketones detection by automated test strip NE GATIVE NEGATIVE Urine nitrite detection by test strip NEGATIVE NEGATIVE Urine total bilirubin detection by test strip NEGA TIVE NEGATIVE Urine urobilinogen measurement by automated test strip (mass/volume) 1.0 mg/dL < = 1.0 Urine leukocyte esterase detection by dipstick TRA CE NEGATIVE Automated urine sediment erythrocyte cou nt by microscopy (number/high power field) RARE NRG Automated urine sediment leukocyte count by microscopy (number/high power field) [HPF] NRG Bacteria detection in urine sediment by light microsco py TRACE NRG Squamous epithelial cells detection in u rine sediment by light microscopy 5-10 NRG Crystals detection in urine sediment by light microsco py NONE NRG Casts detection in urine sediment by light microscopy NONE NRG Mucus detection in urine sediment by light microscopy NEGATIVE NRG Complete urinalysis with reflex to culture NO NRG Encounters ACCT No. Visit Date/Time Discharge Status Pt. Type Provider Facility Loc./Unit Complaint [id number] 06/28/2019 11:20:00 06/28/2019 23:59: 59 CLS Outpatient VELIA VELARDE LAC [facility] [id number] 06/24/2019 10:00:00 Document Registration [id number] 04/21/2019 13:20:00 Document Registration [id number] 11/26/2018 09:45:00 Document Registration [id number] 06/08/2019 13:40:00 06/08/2019 23:59:5 9 CLS Outpatient SANJAY MILLER [facility] [id number] 11/12/2019 09:06:00 23:59:59 CLS Outpatient SANJAY MILLER MD [facility] LAB FS WITH ABNORMAL GLUCOSE TOLERANCE TEST [id number] 11/10/2019 13:08:00 23:59:59 CLS Outpatient SANJAY MILLER MD [facility] LAB FS SUPERVISION OF OTHER NO RMAL ANTEPARTUM [id number] 09/27/2019 10:41:00 23:59:59 CLS Outpatient SANJAY MILLER MD [facility] CARD TACHYCARDIA [id number] 09/24/2019 13:01:00 23:59:59 CLS Outpatient SANJAY MILLER MD [facility] RAD FS R06.02 [id number] 09/24/2019 12:58:00 23:59:59 CLS Outpatient SANJAY MILLER MD [facility] LAB FS CMP UA CBC [id number] 09/22/2019 10:44:00 15:36:00 DIS Emergency ADAMS MALIA CHAN [facility] ER FS SOB [id number] 08/05/2019 16:11:00 23:59:59 CLS Outpatient SANJAY MILLER MD [facility] LABNPT [id number] 06/28/2019 11:53:00 23:59:59 CLS Outpatient SANJAY MILLER MD [facility] LAB FS HIV CBC BLOOD TYPE/RH A NTIBODY SCRN SYPHILIS HEPB+ [id number] 01/04/2020 22:24:00 Document Registration
--- NOTE | 2020-01-05 10:44 | Physician Query-Final Dx ---
MARTHA TOURE 01/05/20 1044: Clinic Account Progress/Dx Physician Query: Please give diagnosis Please include # weeks gestation Date of Service Jan 04, 2020 at 21:47 LUCINA FRANCOIS DO 01/05/20 1259: Clinic Account Progress/Dx DIAGNOSIS: Diagnosis Dr Montero's patient. They called me incorrectly. MARTHA TOURE Jan 05, 2020 10:44 LUCINA FRANCOIS DO Jan 05, 2020 12:59
== END 2020-01-04 23:03 | disposition left against medical advice (07) ==
LOC: LDRP 21:47 → WSo 21:47 → UNDOADMIN 21:54 → LDRP 21:54
PROVIDERS: ATTEND Obstetrics & Gynecology
DX: O62.9 Abnormality of forces of labor, unspecified (principal); Z3A.35 35 weeks gestation of pregnancy
CPT/HCPCS: 81000; 99213

== ENCOUNTER → 2020-01-04 | Outpatient (CLI) | payer OTHER, MEDICAID | LOC: LABNPT 15:14 | PROVIDERS: ATTEND Family Medicine | DX: Z34.90 Encounter for supervision of normal pregnancy, unspecified, unspecified trimester (principal); Z3A.00 Weeks of gestation of pregnancy not specified | CPT/HCPCS: 87081 ==

== ENCOUNTER 2020-01-10 02:31 | Outpatient (CLI) | payer OTHER, MEDICAID ==
[~2020-01-10] VITALS: Ht 157.5 cm; Wt 68.8 kg
--- NOTE | 2020-01-10 02:38 | NUR ---
CAMI NICHOLSON presented to unit via ambulation from ED, accompanied by s.o., with c/o CONTRACTIONS. CAMI NICHOLSON weighed, gowned, voided, and to bed. EFHM and TOCO applied, VS taken. CAMI NICHOLSON oriented to bed controls, call light, TV, heat, and A/C controls.
[2020-01-10 03:04] VITALS: BP 118/65
[2020-01-10 03:11] VITALS: BP 118/65
--- NOTE | 2020-01-10 04:08 | NUR ---
Dr. Garrison called with report on pt. Informed of vitals, SVE's, FHT's, and contraction pattern. Informed that pt is and 36/2. informed that pt refuses any anti tocolytic drugs. states that she can be discharged to home, but to educate pt on when labor starts. Pt. to keep appointment with Dr. Montero this week.
--- NOTE | 2020-01-10 04:15 | NUR ---
Discharge instructions reviewed and pt walked off the unit with . No s/s of distress noted.
[2020-01-10 04:24] VITALS: BP 113/73
--- NOTE | 2020-01-11 12:33 | Physician Query-Final Dx ---
Clinic Account Progress/Dx Physician Query: Please give diagnosis Please include # weeks gestation Date of Service Jan 10, 2020 at 02:31 MARTHA TOURE Jan 11, 2020 12:33
== END 2020-01-10 04:15 ==
LOC: LDRP 02:31 → WSo 02:31
PROVIDERS: ATTEND Obstetrics & Gynecology
DX: O62.9 Abnormality of forces of labor, unspecified (principal); Z3A.36 36 weeks gestation of pregnancy
CPT/HCPCS: 99213

== ENCOUNTER → 2020-08-11 | Outpatient (CLI) | payer OTHER, MEDICAID ==
[~2020-08-11] MED LIST: IBUP-844 PO; PREN-53 PO
== END ==
LOC: LABNPT 16:33
PROVIDERS: ATTEND Obstetrics & Gynecology
DX: Z01.89 Encounter for other specified special examinations (principal)
CPT/HCPCS: 87088

== ENCOUNTER 2021-01-04 07:39 | Emergency (ER) | payer OTHER, MEDICAID ==
[2021-01-04] MEDS ORDERED: LIDOCAINE 2% VISCOUS 15 ML UDC PO ONE (08:00)
[2021-01-04] MEDS ORDERED: ASPIRIN 81 MG CHEW (CHILDREN'S ASA) PO ONE (08:00)
[2021-01-04] MEDS ORDERED: ANTACID SUSP 30 ML UDC (MYLANTA) PO ONE (08:00)
--- NOTE | 2021-01-04 08:28 | Diagnostic Imaging Report ---
INDICATION: Chest pain and shortness of breath. Time of exam: 7:49 AM Comparison is made with prior chest 09/24/2019. The heart size is normal. The pulmonary vascularity is unremarkable. The lungs are clear. No infiltrate, effusion or pneumothorax is detected. IMPRESSION: No acute cardiopulmonary process is detected. Dictated by: Dictated on workstation # [id number]
[2021-01-04 08:29] LABS: HEMATOCRIT 40 % (35-52); MEAN CORPUSCULAR HEMOGLOBIN 31 PG (25-34); MEAN CORPUSCULAR HGB CONC 35 G/DL (32-36); MEAN CORPUSCULAR VOLUME 88 FL (80-99); MEAN PLATELET VOLUME 9.7 FL (7.4-10.4); NEUTROPHILS % (AUTO) 55 % (42-75); PLATELET COUNT 222 10^3/uL (130-400); WHITE BLOOD COUNT 5.8 10^3/uL (4.3-11.0)
[2021-01-04 08:30] LABS: BASOPHILS % (AUTO) 0 % (0-10); EOSINOPHILS # (AUTO) 0.1 10^3/uL (0.0-0.3); EOSINOPHILS % (AUTO) 1 % (0-10); LYMPHOCYTES % (AUTO) 35 % (12-44); MONOCYTES # (AUTO) 0.5 X 10^3 (0.0-1.0); MONOCYTES % (AUTO) 9 % (0-12); NEUTROPHILS # (AUTO) 3.2 X 10^3 (1.8-7.8)
--- NOTE | 2021-01-04 08:31 | ED General ---
General Chief Complaint: Cardiac/General Problems Stated Complaint: TACHY Nursing Triage Note: presents to ED with palpitations, feeling of heart racing, shortness of breath, and burning in chest. Reports her watch has recorded her pulse up to 170's. Has an inhaler for shortness of breath but is not helping. History of Present Illness Date Seen by Provider: Jan 04, 2021 Time Seen by Provider: 08:28 Initial Comments Patient presenting to the emergency department for evaluation of multiple symptoms including chest pain shortness of breath palpitations with a racing heartbeat. All her symptoms started yesterday. She says the symptoms have been constant and she describes it as a burning sensation in her upper middle chest that does not radiate cause her nausea vomiting or diaphoresis but does make her feel short of breath. She denies any worsening pain or shortness of breath with exertion. She says since yesterday she has noted that her heart rate has been in the 170s according to her apple watch. She says she feels her heart rate racing currently as it was all day yesterday and today. Her heart rate is at 80 bpm on the monitor and I asked her again if she is feeling it beating in the 170s and she said yes. She has a history of asthma but no diabetes hypertension high cholesterol smoking or family history of heart disease. She is in no acute distress with normal vital signs. Allergies and Home Medications Allergies Coded Allergies: No Known Drug Allergies (Unverified , 09/22/19) Home Medications Ibuprofen 600 Mg Tablet, 600 MG PO Q6HR Prescribed by: SANJAY MILLER on 01/20/20 0829 Gac169/Iron Fumarate/FA/Dss 1 Each Tablet, 1 EACH PO DAILY, (Reported) Patient Home Medication List Home Medication List Reviewed: Yes Review of Systems Review of Systems Constitutional: no symptoms reported EENTM: no symptoms reported Respiratory: short of breath Cardiovascular: chest pain, palpitations Gastrointestinal: no symptoms reported Genitourinary: no symptoms reported Musculoskeletal: no symptoms reported Skin: no symptoms reported Psychiatric/Neurological: No Symptoms Reported All Other Systems Reviewed Negative Unless Noted: Yes Past Otmxpav-Qjhtvr-Jsddrq Hx Patient Social History Tobacco Use?: No Smoking Status: Never a Smoker Pt feels they are or have been: No Seasonal Allergies Seasonal Allergies: No Past Medical History Surgeries: No Respiratory: No Cardiac: No Neurological: No Genitourinary: No Gastrointestinal: No Musculoskeletal: No Endocrine: No HEENT: No Cancer: No Psychosocial: No Integumentary: No Blood Disorders: No Adverse Reaction/Blood Tranf: No Family Medical History Heart murmur 19 MOTHER G8 BROTHER Physical Exam Vital Signs Vital Signs - First Documented 01/04/21 07:50 Temp 36.3 Pulse 83 Resp 16 B/P (MAP) 118/72 (87) Pulse Ox 100 Capillary Refill : Less Than 3 Seconds Height, Weight, BMI Height: '" Weight: lbs. oz. kg; 27.57 BMI Method: General Appearance: No Apparent Distress, WD/WN HEENT: PERRL/EOMI Neck: Supple Respiratory: Normal Breath Sounds, No Respiratory Distress Cardiovascular: Regular Rate, Rhythm, No Edema, No Murmur Gastrointestinal: Non Tender, Soft Extremity: Normal Capillary Refill, No Pedal Edema Neurologic/Psychiatric: Alert, Oriented x3 Skin: Warm/Dry Progress/Results/Core Measures Suspected Sepsis SIRS Temperature: Pulse: 83 Respiratory Rate: 16 Laboratory Tests 01/04/21 08:09: White Blood Count 5.8 Blood Pressure 118 /72 Mean: 87 Laboratory Tests 01/04/21 08:09: Creatinine 0.79, Platelet Count 222, Total Bilirubin 0.5 Results/Orders Lab Results Laboratory Tests Test 01/04/21 08:09 01/04/21 08:11 Range/Units White Blood Count 5.8 4.3-11.0 10^3/uL Red Blood Count 4.57 4.35-5.85 10^6/uL Hemoglobin 14.0 11.5-16.0 G/DL Hematocrit 40 35-52 % Mean Corpuscular Volume 88 80-99 FL Mean Corpuscular Hemoglobin 31 25-34 PG Mean Corpuscular Hemoglobin Concent 35 32-36 G/DL Red Cell Distribution Width 12.2 10.0-14.5 % Platelet Count 222 130-400 10^3/uL Mean Platelet Volume 9.7 7.4-10.4 FL Immature Granulocyte % (Auto) 0 % Neutrophils (%) (Auto) 55 42-75 % Lymphocytes (%) (Auto) 35 12-44 % Monocytes (%) (Auto) 9 0-12 % Eosinophils (%) (Auto) 1 0-10 % Basophils (%) (Auto) 0 0-10 % Neutrophils # (Auto) 3.2 1.8-7.8 X 10^3 Lymphocytes # (Auto) 2.0 1.0-4.0 X 10^3 Monocytes # (Auto) 0.5 0.0-1.0 X 10^3 Eosinophils # (Auto) 0.1 0.0-0.3 10^3/uL Basophils # (Auto) 0.0 0.0-0.1 10^3/uL Immature Granulocyte # (Auto) 0.0 0.0-0.1 10^3/uL Sodium Level 138 135-145 MMOL/L Potassium Level 4.2 3.6-5.0 MMOL/L Chloride Level 105 98-107 MMOL/L Carbon Dioxide Level 24 21-32 MMOL/L Anion Gap 9 5-14 MMOL/L Blood Urea Nitrogen 15 7-18 MG/DL Creatinine 0.79 0.60-1.30 MG/DL Estimat Glomerular Filtration Rate > 60 BUN/Creatinine Ratio 19 Glucose Level 86 70-105 MG/DL Calcium Level 9.1 8.5-10.1 MG/DL Corrected Calcium 8.9 8.5-10.1 MG/DL Total Bilirubin 0.5 0.1-1.0 MG/DL Aspartate Amino Transf (AST/SGOT) 13 5-34 U/L Alanine Aminotransferase (ALT/SGPT) 14 0-55 U/L Alkaline Phosphatase 111 40-136 U/L Troponin I < 0.30 <0.30 NG/ML Total Protein 7.2 6.4-8.2 GM/DL Albumin 4.2 3.2-4.5 GM/DL Urine Color DARK YELLOW Urine Clarity SL CLOUDY Urine pH 7.0 5-9 Urine Specific Outing 1.015 L 1.016-1.022 Urine Protein NEGATIVE NEGATIVE Urine Glucose (UA) NEGATIVE NEGATIVE Urine Ketones NEGATIVE NEGATIVE Urine Nitrite NEGATIVE NEGATIVE Urine Bilirubin NEGATIVE NEGATIVE Urine Urobilinogen 0.2 < = 1.0 MG/DL Urine Leukocyte Esterase TRACE H NEGATIVE Urine RBC (Auto) NEGATIVE NEGATIVE Urine RBC NONE /HPF Urine WBC 5-10 H /HPF Urine Squamous Epithelial Cells 10-25 H /HPF Urine Crystals NONE /LPF Urine Bacteria FEW H /HPF Urine Casts NONE /LPF Urine Mucus MODERATE H /LPF Urine Culture Indicated YES Urine Test NEGATIVE NEGATIVE My Orders Orders - MARISA AWAD DO Iv/Invasive Line Insertion .IV start (01/04/21 07:54) Cbc With Automated Diff (01/04/21 07:54) Comprehensive Metabolic Panel (01/04/21 07:54) Troponin I Fs (01/04/21 07:54) Ua Culture If Indicated (01/04/21 07:54) Chest 1 View Ap/Pa Only (01/04/21 07:54) Ekg Tracing (01/04/21 07:54) Hcg,Qualitative Urine (01/04/21 07:54) Lidocaine 2% Viscous 15 Ml (Xylocaine Vi (01/04/21 08:00) Antacid Suspension (Mylanta Suspension (01/04/21 08:00) Aspirin Chewable Tablet (Baby Aspirin Ch (01/04/21 08:00) Urine Culture (01/04/21 08:11) Medications Given in ED Current Medications Medications Dose Ordered Sig/Forest Route Start Time Stop Time Status Last Admin Dose Admin Al Hydrox/Mg Hydrox/Simethicone 30 ml ONCE ONCE PO 01/04/21 08:00 01/04/21 08:05 DC 01/04/21 08:10 30 ML Aspirin 324 mg ONCE ONCE PO 01/04/21 08:00 01/04/21 08:05 DC 01/04/21 08:09 324 MG Lidocaine HCl 5 ml ONCE ONCE PO 01/04/21 08:00 01/04/21 08:05 DC 01/04/21 08:10 5 ML Vital Signs/I&O 01/04/21 07:50 Temp 36.3 Pulse 83 Resp 16 B/P (MAP) 118/72 (87) Pulse Ox 100 Capillary Refill : Less Than 3 Seconds Blood Pressure Mean: 87 Progress Note : Progress Note Heart score is equal to 0 and EKG and troponin are negative more than 6 hours out from onset of symptoms. She has a PERC score equal to 0. No signs of SVT or other arrhythmia while she is on the monitor here in the emergency department. I will give her a GI cocktail aspirin observe and reassess. Patient says that her pain completely resolved with the GI cocktail. She said it came back after approximately 30 to 40 minutes. Given her heart score is equal to 0 and her work-up is completely normal had a suspect this is esophagitis and reflux causing her chest pain and shortness of breath. Given she appears well with normal vital signs benign physical exam and work-up she is stable for discharge. I told her to start taking her Prilosec daily and use Tums and Maalox for immediate relief. I told her to follow with her primary care provider within the next 4 to 5 days for recheck and she can come back to emergency department anytime with worsening pain shortness of breath or other general concerns. Patient aware and agreeable with plan and verbalized understanding the above instructions. Departure Impression Primary Impression: Chest pain at rest Additional Impression: Dyspnea Disposition: 01 HOME, SELF-CARE Condition: Stable Departure-Patient Inst. Referrals: SANJAY MILLER MD (PCP/Family) Primary Care Physician Patient Instructions: Chest Pain Add. Discharge Instructions: Take OTC prilosec daily Use Tums and Maalox for immediate relief Follow with PCP within next 4-5 days All discharge instructions reviewed with patient and/or family. Voiced understanding. MARISA AWAD DO Jan 04, 2021 08:31
[2021-01-04 08:44] LABS: BILIRUBIN,URINE NEGATIVE (NEGATIVE); CLARITY,URINE SL CLOUDY; COLOR,URINE DARK YELLOW; GLUCOSE, URINE (UA) NEGATIVE (NEGATIVE); KETONES,URINE NEGATIVE (NEGATIVE); LEUKOCYTE ESTERASE ,URINE TRACE (NEGATIVE); NITRITE,URINE NEGATIVE (NEGATIVE); PROTEIN,URINE NEGATIVE (NEGATIVE)
[2021-01-04 08:45] LABS: BACTERIA,URINE FEW /HPF
[2021-01-04 08:47] LABS: ALANINE AMINOTRANSFERASE 14 U/L (0-55); ALBUMIN 4.2 GM/DL (3.2-4.5); ALKALINE PHOSPHATASE 111 U/L (40-136); BILIRUBIN,TOTAL 0.5 MG/DL (0.1-1.0); BUN/CREATININE RATIO 19; CALCIUM 9.1 MG/DL (8.5-10.1); CARBON DIOXIDE 24 MMOL/L (21-32); CHLORIDE 105 MMOL/L (98-107); CREATININE SERUM 0.79 MG/DL (0.60-1.30); GFR ESTIMATED > 60; GLUCOSE 86 MG/DL (70-105); TOTAL PROTEIN 7.2 GM/DL (6.4-8.2)
[2021-01-04 08:48] LABS: SODIUM 138 MMOL/L (135-145)
[2021-01-04 09:01] LABS: POTASSIUM 4.2 MMOL/L (3.6-5.0)
[2021-01-04 09:25] VITALS: BP 107/81
== END 2021-01-04 09:25 | disposition home or self-care (01) ==
LOC: EDUNIT# 07:39 → ER FS 07:40
DX: R07.9 Chest pain, unspecified (principal); R06.00 Dyspnea, unspecified; J45.909 Unspecified asthma, uncomplicated
CPT/HCPCS: 36415; 71045; 80053; 81000; 84484; 84703; 85025; 87088; 93005

== ENCOUNTER → 2021-01-10 | Outpatient (CLI) | payer OTHER, MEDICAID ==
[2021-01-10 16:01] LABS: BASOPHILS % (AUTO) 1 % (0-10); EOSINOPHILS # (AUTO) 0.1 10^3/uL (0.0-0.3); EOSINOPHILS % (AUTO) 1 % (0-10); HEMATOCRIT 42 % (35-52); LYMPHOCYTES # (AUTO) 2.1 X 10^3 (1.0-4.0); LYMPHOCYTES % (AUTO) 25 % (12-44); MEAN CORPUSCULAR HEMOGLOBIN 30 PG (25-34); MEAN CORPUSCULAR HGB CONC 34 G/DL (32-36); MEAN CORPUSCULAR VOLUME 88 FL (80-99); MEAN PLATELET VOLUME 9.6 FL (7.4-10.4); MONOCYTES # (AUTO) 0.6 X 10^3 (0.0-1.0); MONOCYTES % (AUTO) 7 % (0-12); NEUTROPHILS # (AUTO) 5.5 X 10^3 (1.8-7.8); NEUTROPHILS % (AUTO) 67 % (42-75); PLATELET COUNT 240 10^3/uL (130-400); WHITE BLOOD COUNT 8.3 10^3/uL (4.3-11.0)
== END ==
LOC: LAB FS 14:36
PROVIDERS: ATTEND Family Medicine
DX: R41.3 Other amnesia (principal)
CPT/HCPCS: 36415; 82607; 84443; 85025

== ENCOUNTER → 2021-11-01 | Outpatient (CLI) | payer MEDICAID, OTHER ==
--- NOTE | 2021-11-01 09:26 | Diagnostic Imaging Report ---
PROCEDURE: US Non-ob pelvis comp/trans. TECHNIQUE: Multiple realtime grayscale images were obtained of the pelvis in various projections endovaginally. Transabdominal imaging was also performed. INDICATION: Chronic pelvic pain. COMPARISON: None Available FINDINGS: Transabdominal: The uterus and adnexa have a unremarkable transabdominal appearance. Transvaginal images were obtained for additional characterization. Transvaginal: The uterus is anteverted and measures 7.6 x 3.6 x 4.4 cm. An ill-defined heterogeneous area is seen within the anterior aspect of the fundus of the uterus measuring 3.0 x 1.8 x 2.2 cm. Associated increased vascularity is seen in this area. The endometrial stripe measures 0.2 cm and has a normal appearance. The right ovary is well visualized measuring 2.9 x 2.1 x 2.9 cm and demonstrating normal color Doppler flow. The left ovary is well-visualized measuring 2.8 x 1.2 x 2.4 cm with normal color Doppler flow. No adnexal masses. No free fluid is seen in the pelvis. IMPRESSION: 1. Nonspecific ill-defined heterogeneous area in the anterior aspect of the fundus of the uterus measuring 3.0 cm and demonstrating increased vascularity. Findings may represent a fibroid although other etiologies are not excluded. Consider follow-up with pelvic ultrasound in 2-3 months to reevaluate. MRI of the pelvis with and without contrast may also be considered to further characterize. 2. Unremarkable appearance of the ovaries. No evidence of torsion or adnexal mass. No free fluid. Dictated by: Dictated on workstation # [id number]
== END ==
LOC: RAD FS 08:08
PROVIDERS: ATTEND Family Medicine
DX: R10.2 Pelvic and perineal pain (principal)
CPT/HCPCS: 76830; 76856

== ENCOUNTER → 2022-01-29 | Outpatient (CLI) | payer MEDICAID ==
--- NOTE | 2022-01-29 11:17 | Diagnostic Imaging Report ---
PROCEDURE: US Non-ob pelvis comp/trans. INDICATION: Mass of uterus. TECHNIQUE: Multiple Real-time grayscale sonographic images were obtained of the pelvis transabdominally and endovaginally. CORRELATION STUDY: 11/01/2021. FINDINGS: UTERUS: 8.5 x 5.4 x 3.7 cm. ENDOMETRIUM: 0.7 cm. RIGHT OVARY: 2.9 x 1.6 x 1.5 cm. LEFT OVARY: 4.4 x 2.5 x 2.5 cm. At the anterior aspect of the uterus is a slightly hypoechoic, vascularized solid mass measuring 3.1 x 1.5 x 2.8 cm (previously 3.0 x 1.8 x 2.2 cm). Endometrial thickness is within normal limits for a premenopausal patient. Right ovary relatively unremarkable. Left ovary contains several cysts present with the largest at 2.1 x 2.1 x 2.0 cm and an addition one at 1.7 x 2.0 x 1.2 cm. There is blood flow to the ovaries. No significant free pelvic fluid. IMPRESSION: Solid, vascularized mass in the anterior uterus, probable fibroid uterus; however, this has shown slight interval enlargement from prior. Given suggestion of enlargement, alternative mass lesions are not excluded. Consideration may be given to MRI for further assessment. Dictated by: Dictated on workstation # [id number]
== END ==
LOC: RAD FS 09:24
PROVIDERS: ATTEND Family Medicine
DX: N85.8 Other specified noninflammatory disorders of uterus (principal)
CPT/HCPCS: 76830; 76856

== ENCOUNTER → 2022-02-12 | Outpatient (CLI) | payer MEDICAID ==
[~2022-02-12] MED LIST changes: +GADOTERATE 0.5 MMOL/ML (CLARISCAN) 20 ML VIAL IV ONE
--- NOTE | 2022-02-12 14:21 | Diagnostic Imaging Report ---
PROCEDURE: MRI pelvis with and without contrast. TECHNIQUE: Multiplanar, multisequence MRI of the pelvis was performed with and without contrast. INDICATION: Uterine mass seen on ultrasound. COMPARISON: Pelvic ultrasound of 01/29/2022. FINDINGS: The uterus is anteverted and measures 7.3 x 3.0 x 5.6 cm. The endometrium has normal T2 hyperintense homogeneous signal and is normal in thickness measuring 0.6 cm. There is normal T2 hypointense junctional zone which is not abnormally thickened. The myometrium has expected heterogeneous T2 hyperintense signal. On post contrast imaging, the myometrium demonstrates homogeneous enhancement. There is no mass present within the myometrium. Specifically, no abnormality in the anterior uterine body as suggested by previous ultrasounds. There is a hypointense tampon within the vagina. The left ovary measures 3.0 x 1.6 x 1.6 cm and has numerous subcentimeter physiologic follicles present. The right ovary measures 1.9 x 1.6 x 1.4 cm and has a few small follicles present. No free pelvic fluid. Visualized musculoskeletal structures are normal. IMPRESSION: 1. There is no uterine mass. Specifically, along the anterior aspect of the uterine body, there is no intramural mass to suggest fibroid or other mass lesion. 2. Normal appearance of the ovaries. Dictated by: Dictated on workstation # [id number]
== END ==
LOC: RAD 02-04 13:15
PROVIDERS: ATTEND Family Medicine
DX: N85.8 Other specified noninflammatory disorders of uterus (principal)
CPT/HCPCS: 72197

== ENCOUNTER → 2023-01-14 | Outpatient (CLI) | payer MEDICAID ==
[~2023-01-14] MED LIST changes: -GADOTERATE 0.5 MMOL/ML (CLARISCAN) 20 ML VIAL IV ONE
--- NOTE | 2023-01-14 15:17 | Diagnostic Imaging Report ---
PROCEDURE: Pelvic comp/transvaginal sonogram. TECHNIQUE: Complete transabdominal and transvaginal pelvic ultrasound was performed. In addition, limited pelvic Doppler was performed. INDICATION: Evaluate IUD. FINDINGS: The uterus measures 8.4 x 5.1 x 3.8 cm. The endometrium is 6 mm in thickness. The IUD appears to be appropriately centered in the endometrial canal. No myometrial mass is detected. The right ovary measures 3.1 x 2.6 x 2.4 cm and the left ovary measures 2.3 x 1.7 x 1.8 cm. The right ovary does contain an approximately 16 mm cyst which may be hemorrhagic. There is blood flow to both ovaries. No adnexal mass or free fluid is detected. IMPRESSION: 1. The IUD is appropriately centered in the endometrial canal. 2. There is a 16 mm hemorrhagic right ovarian cyst. Dictated by: Dictated on workstation # [id number]
== END ==
LOC: RAD FS 09:54
PROVIDERS: ATTEND Nurse Practitioner Women's Health
DX: Z30.431 Encounter for routine checking of intrauterine contraceptive device (principal); N83.201 Unspecified ovarian cyst, right side
CPT/HCPCS: 76830; 76856